=== PATIENT | male | born 1965 | race Caucasian/White ===

== ENCOUNTER 2017-04-03 15:17 | Emergency (ER) | payer OTHER ==
[2017-04-03] MEDS ORDERED: XYLOCAINE 1% and EPINEPHRINE 1:100,000 ONE (15:20)
[2017-04-03 15:21] VITALS: BP 174/94; BMI 31.4
--- NOTE | 2017-04-03 16:25 | CT ---
CT head without contrast Indication: Head laceration Technique: Helical CT images of the brain were obtained without IV contrast. Reformatted images in th e coronal and sagittal planes were also generated for review. Comparison: None Findings: There is no intracranial hemorrhage, focal or generalized edema, extra-axial collection or midline shift. The visualized paranasal sinuses and mastoid air cells are clear. There is a large sof t tissue laceration to the vertex of the scalp with trace subcutaneous emphysema. No underlying yosi rial fracture is identified. Impression: Soft tissue laceration to the vertex of the scalp without underlying calvarial fracture or acute intr acranial abnormality. Reported By:
--- NOTE | 2017-04-03 16:28 | CT ---
HISTORY: Head laceration. Study: CT cervical spine without contrast Comparison: None. Technique: Multiple axial images of the cervical spine were obtained from the skull base to the thora cic inlet without administration of IV contrast. Sagittal and coronal reformats were performed and r eviewed. Dose reduction techniques including Automated Exposure Control (AEC) and adjustment of mA an d kV were utilized. Findings: Reversal of the normal cervical lordosis, which may represent positioning versus muscle spasm. No acu te fracture or listhesis. Multilevel moderate degenerative changes of the cervical spine with associa tre [id number] neural foraminal narrowing. No significant spinal canal stenosis. The prevertebr al soft tissues and lung apices appear normal. IMPRESSION: No acute cervical pathology. Reported By:
[2017-04-03] MEDS ORDERED: MORPHINE SULFATE INJ 4 MG ONE (16:29)
--- NOTE | 2017-04-03 16:34 | DR.HI ---
HPI - Time Seen Time seen: 15:25 - PCP Primary Care Physician: AMANDO - HPI Comment HPI Comment: History as stated - Complaint Chief Complaint:: PT C/O LACERATION TO OCCIPITAL REGION OF HEAD. PT STATES HE FELL OFF OF THE SIDE OF HIS BIG TRUCK AND HIT HIS HEAD. - Source History Provided: Patient - Mode of arrival Mode of Arrival: EMS - Timing Onset of Chief Complaint: 04/03/17 PMH - PMH Past Medical History: Yes Past Medical History: Hypertension Past Medical History Comment: PTSD Past Surgical History: Yes Surgical History: Appendectomy - Family History History of Family Medical Conditions: No - Social History Does any household member use tobacco: No Alcohol Use: None Do you use any recreational Drugs:: No Lives With: Family Lives Where: Home - infectious screening In the last 2 months have you had wt loss of >10#?: NO Have you had fever, night sweats or hemotysis?: No Have you traveled outside the country in the last 6 months?: No Isolation: Standard ROS - Review of Systems Eyes: No Symptoms Reported ENTM: No Symptoms Reported Respiratoy: No Symptoms Reported Cardiovascular: No Symptoms Reported Gastrointestinal/Abdominal: No Symptoms Reported Genitourinary: No Symptoms Reported Neurological: No Symptoms Reported Musculoskeletal: Other (scalp laceration) Integumentary: No Symptoms Reported Hematologic/Lymphatic: No Symptoms Reported Endocrine: No Symptoms Reported Psychiatric: No Symptoms Reported All Other Systems: Reviewed and Negative PE - Vital Signs Vitals: Temperature 98.2 F Pulse Rate 85 Respiratory Rate 20 Blood Pressure 174/94 O2 Sat by Pulse Oximetry 99 - General Limitations: No Limitations General Appearance: Alert, In No Apparent Distress - Head Head Exam: Normal Inspection, Other (A 24cm superficial laceration to posterior scalp) Head Exam Physical: Laceration, Abrasion - Eyes Eye exam: Normal Appearance, PERRL, EOMI Eyelids: Normal Inspection: Bilateral Pupils: Regular, Round: Bilateral Sclera/Conjunctival: Normal Inspection: Bilateral - ENT ENT Exam: Normal Exam, Normal Oropharynx Nose Exam: Normal Nose Exam Mouth Exam: Normal Inspection - Neck Neck Exam: Normal Inspection - Respiratory Respiratory Exam: Normal Lung Sounds Bilat Respiratory Exam: Bilateral Clear to Auscultation - Cardiovascular Cardiovascular Exam: Regular Rate, Normal Rhythm - Abdominal Exam Abdominal Exam: Normal Inspection, Normal Bowel Sounds Abdominal Tenderness: negative: RUQ, RLQ, LUQ, LLQ, Epigastrium, Suprapubic, Diffuse, Mild, Moderate, Severe, Other - Extremities Extremities Exam: Normal Inspection, Full ROM - Back Back Exam: Normal Inspection, Full ROM - Neurologic Neurological Exam: Alert, Oriented X3, CN II-XII Intact - Psychiatric Psychiatric Exam: Normal Affect, Normal Mood - Skin Skin Exam: Warm, Dry, Intact Course - Reevaluation 1st: Improved ROR - XRAY XRAY Interpreted by: Radiologist (Ct Head: There is no intracranial hemorrhage , focal or generalized edema, extra axial collection or midline shift. The visualized paranasal sinuses and mastoid air cells are clear. There is a large soft tissue laceration to the vertex of the scalp with trace subcutaneous emphysema. No underlying calvarial fracture is identified. Impression: Soft tissue laceration to the vertex of the scalp without underlying calvarial fracture or acute intracranial abnormality.) Procedures - Laceration/Wound Repair Head Wound Length (cm): 12 Wound's Depth, Shape: Irregular (c) Wound Explored: clean Betadine Prep?: Yes Anesthesia: 1% Lidocaine Wound Debrided: minimal (anushka 16) - Diagnosis Discharge Problem: Occipital scalp laceration Qualifiers: Encounter type: initial encounter Qualified Code(s): S01.01XA - Laceration without foreign body of scalp, initial encounter - Discharge Plan Condition: Stable - Follow ups/Referrals Follow ups/Referrals: NFD,None [Primary Care Provider] - 3 days - Instructions
[2017-04-03] MEDS ORDERED: MORPHINE SULFATE INJ 4 MG IVP ONE (16:45)
== END 2017-04-03 17:14 | disposition home or self-care (01) | DRG 581 ==
LOC: EDBD 15:17 → ER 15:17
PROC: 0JQ00ZZ Repair Scalp Subcutaneous Tissue and Fascia, Open Approach (ICD-10-PCS; principal; 2017-04-03)
DX: S01.01XA Laceration without foreign body of scalp, initial encounter (principal); W17.89XA Other fall from one level to another, initial encounter; Y92.89 Other specified places as the place of occurrence of the external cause
CPT/HCPCS: 12004; 70450; 72125; 96365; 96374; 99283; J2001; J2270